=== PATIENT | female | born 1955 | race Native Hawaiian/Other Pacific Islander ===

== ENCOUNTER → 2018-05-26 09:01 | Outpatient (CLI) | payer OTHER, SELFPAY ==
--- NOTE | 2018-05-26 | DI.US.S_ITS ---
ULTRASOUND OF RIGHT BREAST AND AXILLA: 05/26/2018 CLINICAL: Patient returns today to evaluate a density in the right breast. Comparison is made to exam dated: 05/26/2018 [facility]. Color flow, real-time, and Doppler ultrasound of the right breast and axilla were performed. Salter scale images of the real-time examination were reviewed. There is 2.9 cm x 2.8 cm x 2.6 cm taller than wide irregular mass with an angular margins in the right breast at 1 o'clock anterior depth 5 cm from the nipple. This irregular mass is heterogeneously hypoechoic with an echogenic boundary and posterior acoustic shadowing. Color flow imaging demonstrates that there is vascularity present. No abnormalities were seen sonographically in the right axilla. IMPRESSION: HIGHLY SUGGESTIVE OF MALIGNANCY The 2.9 cm x 2.8 cm x 2.6 cm taller than wide irregular mass in the right breast is highly suggestive of malignancy. An ultrasound guided biopsy is recommended. Recommendations for biopsy was discussed with the patient by Dr. Daniel Cohen on 05/26/2018. This exam was interpreted at Station ID: [id number]. Electronically Signed By: Rodney Sequeira M.D. aty/:05/26/2018 11:12:14 letter sent: Biopsy Required Ultrasound BI-RADS: 5 Highly suggestive of malignancy
--- NOTE | 2018-05-26 | DI.MG.S_ITS ---
BILATERAL DIGITAL DIAGNOSTIC MAMMOGRAM 3D/2D: 05/26/2018 CLINICAL: Baseline exam. Right breast mass. No prior exams were available for comparison. There are scattered fibroglandular elements in both breasts. There is 2.9 cm x 2.8 cm x 2.6 cm irregular mass with an indistinct margin and pleomorphic calcifications in the right breast at 1 o'clock anterior depth 5 cm from the nipple. This correlates as palpated. There is architectural distortion associated with the mass. No other significant masses, calcifications, or other findings are seen in either breast. IMPRESSION: INCOMPLETE: NEEDS ADDITIONAL IMAGING EVALUATION The 2.9 cm x 2.8 cm x 2.6 cm irregular mass in the right breast is indeterminate. An ultrasound of the right breast and axilla is recommended which is scheduled to immediately follow this exam. This exam was interpreted at Station ID: [id number]. NOTE: For mammograms, a report in lay terms will be sent to the patient. Approximately 15% of breast malignancies will not be visualized mammographically. In the management of a palpable breast mass, a negative mammogram must not discourage biopsy of a clinically suspicious lesion. Electronically Signed By: Rodney Sequeira M.D. aty/:05/26/2018 11:06:53 ACR BI-RADS Category 0: Incomplete [id number]
== END ==
PROVIDERS: PCP Physician Assistant Medical; Visit Provider Physician Assistant Medical
DX: R92.8 Other abnormal and inconclusive findings on diagnostic imaging of breast (principal); N63.12 Unspecified lump in the right breast, upper inner quadrant
CPT/HCPCS: 76642; 77066; G0279

== ENCOUNTER → 2018-08-25 08:21 | Outpatient (CLI) | payer OTHER, SELFPAY ==
--- NOTE | 2018-08-25 | DI.US.S_ITS ---
ULTRASOUND GUIDED BIOPSY RIGHT BREAST USING VACUUM DEVICE WITH MARKING DEVICE INSERTED AND POST DIGITAL MAMMOGRAPHIC IMAGIN08/25/2018 CLINICAL: Right breast mass. PATIENT CONSENT: Risks (minor bleeding, infection, vasovagal reaction and repeat procedure), benefits and alternatives were explained to the patient and written informed consent was obtained. Correlation is made to exams dated: 08/25/2018 mammogram, 05/26/2018 ultrasound, and 05/26/2018 mammogram - [facility]. An ultrasound guided biopsy using real-time ultrasound was performed for the concerning palpable 2.5 cm x 3 cm x 2.8 cm circumscribed lobulated mass located in the right breast at 1 o'clock middle depth. This was described on the previous mammography and ultrasound reports. The skin was prepped in the usual manner. Local anesthetic was administered to the access site. A skin beck was made in the breast. The abnormality was approached from the medial aspect. A 13 gauge biopsy needle was placed adjacent to the abnormality under ultrasound guidance. Once the needle was documented to be in the correct location, five specimens were obtained using the Mammotome biopsy system. The patient received additional local anesthetic during the procedure. A Vision marker clip was inserted into the biopsy cavity. A skin closure strip and a sterile dressing were applied to the access site. Post procedure digital mammographic imaging demonstrates the location device at the targeted area and partial removal of the abnormality. The specimens were sent to the laboratory for pathological analysis. IMPRESSION: ULTRASOUND GUIDED BIOPSY MALIGNANT Ultrasound guided biopsy of the 2.5 cm x 3 cm x 2.8 cm mass in the right breast at 1 o'clock middle depth was successful. Pathology indicates malignant invasive ductal carcinoma (ID). Pathology results are concordant with imaging findings. A surgical/oncologic consultation is recommended. This exam was interpreted at Station ID: [id number]. Daniel Sequeira M.D. [facility],aty/:09/02/2018 18:49:05
--- NOTE | 2018-08-25 | PATH_ITS ---
[facility] Accession Number: [id number] . 01 Material submitted: . breast - RIGHT BREAST MASS . 02 Diagnosis: Right Breast Needle Core Biopsy: Infiltrating ductal carcinoma with the following features: 1. Tumor size: Largest length of tumor in a single core: 0.8 cm (all cores involved with tumor). 2. Tumor grade: Denis grade 2 of 3 (score 6 of 9). Nuclear grade: Intermediate (score 2 of 3). Mitotic rate: Low (score 1 of 3). Tubular differentiation: Low (3 of 3). 3. In situ carcinoma: Not identified. 4. Vascular/lymphatic channel invasion: Not identified. 5. Hormone receptor studies: Pending by immunohistochemistry, to be reported by addendum. . . COMMENT: Case reviewed by Dr. Dakota Franco, who concurs with the diagnosis. . The results of this evaluation are telephoned to Rosa Brasher at 0820 on 08/28/2018. MRV/08/28/2018 . 02 Electronically signed: . Lupillo Brice MD, Pathologist NPI- [id number] . 01 Gross description: . The specimen is received in formalin with a plastic filter. The specimen is loose in container. The specimen consists of multiple fragments of yellow-garcia fatty tissue measuring 2.0 x 0.5 x 0.2 cm in aggregate. All tissue is entirely submitted in one cassette. Per the requisition, the sample was collected on 08/25/2018 at 10:16 a.m. Total fixation time is approximately 48 hours. Note: Specimen was originally received in an unlabeled container and we have received a name authorization from the client. (MR:[id number]) /MRV . 02 Pathologist provided ICD-10: C50.911 . 02 CPT . 916113, [id number] Performed at: 01 [facility] [address] [place] [address], [place], [place] [id number] MD Trevor Funes MD Phone: [phone] Performed at: 02 [facility] [address] [place], [place] [id number] MD Karen Duran MD Phone: [phone]
--- NOTE | 2018-08-25 | DI.MG.S_ITS ---
UNILATERAL RIGHT DIGITAL DIAGNOSTIC MAMMOGRAM POST-NEEDLE BIOPSY: 08/25/2018 CLINICAL: Post clip placement. Comparison is made to exam dated: 05/26/2018 [facility]. There are scattered fibroglandular elements in right breast. There is a marker clip in the appropriate position in the right breast at 1 o'clock middle depth. This correlates with the biopsy. IMPRESSION: POST PROCEDURE MAMMOGRAM FOR MARKER PLACEMENT There was a successful marker clip placement in the right breast middle depth. This exam was interpreted at Station ID: [id number]. NOTE: For mammograms, a report in lay terms will be sent to the patient. Approximately 15% of breast malignancies will not be visualized mammographically. In the management of a palpable breast mass, a negative mammogram must not discourage biopsy of a clinically suspicious lesion. Electronically Signed By: Daniel hicks/ines:08/25/2018 17:48:12 ACR BI-RADS Category Post-procedure mammogram for marker placement
== END ==
PROVIDERS: PCP Physician Assistant Medical; Visit Provider Physician Assistant Medical
DX: C50.211 Malignant neoplasm of upper-inner quadrant of right female breast (principal); Z17.0 Estrogen receptor positive status [ER+]
CPT/HCPCS: 19083; 77065

== ENCOUNTER → 2020-07-18 07:26 | Outpatient (CLI) | payer OTHER, SELFPAY ==
--- NOTE | 2020-07-18 | DI.US.S_ITS ---
PROCEDURE: US THYROID INDICATIONS: NONTOXIC MULTINODULAR GOITER TECHNIQUE: Real-time scanning was performed of the thyroid gland, with image documentation. COMPARISON: [facility], [place], US SOFT TISSUE HEAD OR NECK, 05/28/2019, 15:23. FINDINGS: Right: Thyroid lobe measures 5.2 x 1.6 x 1.7 cm, and is homogeneous in echotexture. Left: Thyroid lobe measures 8.3 x 7.2 x 4.2 cm, and is homogenous in echotexture. Isthmus: 4.0 mm thick. Nodule number: 1 Location: Right superior Size: Unchanged at 1.0 x 0.7 x 0.6 cm. Composition: Cystic Echogenicity: Anechoic Shape: wider than tall. Margins: Smooth Echogenic foci: None Total points: 0 ACR TI-RADS category: Benign Nodule number: 2 Location: Right inferior Size: Unchanged at 1.1 x 0.7 x 0.5 cm. Composition: Predominantly cystic Echogenicity: Hypoechoic Shape: wider than tall. Margins: Smooth Echogenic foci: None Total points: To ACR TI-RADS category: Not suspicious Nodule number: 3 Location: Left Size: Unchanged at 7.3 x 6.8 x 3.4 cm. Composition: Predominantly cystic Echogenicity: Predominantly anechoic Shape: wider than tall. Margins: Smooth Echogenic foci: None Total points: 0 ACR TI-RADS category: Large benign cyst IMPRESSION: Bilateral colloid cysts, largest of which is on the left measuring up to 7.3 cm. ACR TI-RADS definitions and recommendations: TI-RADS 1 (benign): 0 points. FNA not needed. TI-RADS 2 (not suspicious): 2 points. FNA not needed. TI-RADS 3 (mildly suspicious): 3 points. * FNA if 2.5 cm or larger, follow up if 1.5 cm or larger (at 1, 3, and 5 years). TI-RADS 4 (moderately suspicious): 4-6 points. * FNA if 1.5 cm or larger, follow up if 1 cm or larger (at 1, 2, 3, and 5 years). TI-RADS 5 (highly suspicious): 7 points or more. * FNA if 1 cm or larger, follow up if 0.5 cm or larger (every year for 5 years). Dictated by: Chapin SUN Interpreted: Senia Ferro MD on 07/18/2020 at 10:06 Approved by: Senia Ferro M.D. on 07/18/2020 at 12:24
== END ==
PROVIDERS: PCP Physician Assistant Medical; Referring Provider Otolaryngology; Visit Provider Otolaryngology
DX: E04.2 Nontoxic multinodular goiter (principal)
CPT/HCPCS: 76536